=== PATIENT | male | born 1935 | race Two or more races ===

== ENCOUNTER 2024-04-05 20:37 | Emergency (ER) | payer MEDICARE, OTHER ==
[~2024-04-05] VITALS: Ht 175.3 cm; Wt 113.4 kg
[2024-04-05 21:00] VITALS: TEMP 98
[2024-04-05] MEDS ORDERED: TDAP [DIPH/PERTUSSIS/TET] 0.5 ML VIAL IM ONE (22:30)
[2024-04-06 00:47] VITALS: BP 129/74; O2SAT 98
== END 2024-04-06 | disposition home or self-care (01) ==
LOC: ER 20:44
DX: S01.81XA Laceration without foreign body of other part of head, initial encounter (principal); F32.A Depression, unspecified; I10 Essential (primary) hypertension; K21.9 Gastro-esophageal reflux disease without esophagitis; Z88.0 Allergy status to penicillin; Z60.2 Problems related to living alone; W01.0XXA Fall on same level from slipping, tripping and stumbling without subsequent striking against object, initial encounter; Y93.89 Activity, other specified; Y92.59 Other trade areas as the place of occurrence of the external cause; Y99.8 Other external cause status
CPT/HCPCS: 70450-TC; 71045-TC; 72125-TC; 72170-TC; 82962-TC

== ENCOUNTER → 2024-04-07 | Emergency (ER) | payer MEDICARE ==
[~2024-04-07] VITALS: Ht 175.3 cm; Wt 113.4 kg
[2024-04-08 00:22] VITALS: BP 157/77; TEMP 98.4; O2SAT 95
== END | disposition left against medical advice (07) ==
LOC: ER 21:20
DX: S05.12XD Contusion of eyeball and orbital tissues, left eye, subsequent encounter (principal); S05.11XD Contusion of eyeball and orbital tissues, right eye, subsequent encounter; R22.0 Localized swelling, mass and lump, head; I10 Essential (primary) hypertension; K21.9 Gastro-esophageal reflux disease without esophagitis; F32.A Depression, unspecified; Z88.0 Allergy status to penicillin; Z60.2 Problems related to living alone; X58.XXXD Exposure to other specified factors, subsequent encounter
CPT/HCPCS: 70450-TC; 70486-TC